=== PATIENT | male | born 1990 | race Caucasian/White ===

== ENCOUNTER 2020-05-24 20:50 | Emergency (ER) | payer SELFPAY ==
--- NOTE | 2020-05-24 20:59 | US_ITS ---
WS: [id number] SCROTAL ULTRASOUND EXAMINATION CLINICAL INFORMATION: testicle pain COMPARISON: None. FINDINGS: TESTES Normal in size and echotexture, without focal lesion. Color Doppler: Normal color Doppler flow pattern. Right testes size: 4.4 cm x 3.1 cm x 2.4 cm. Left testes size: 4.1 cm x 2.8 cm x 2.9 cm. EPIDIDYMIDES Normal in size and echotexture. Left epididymal cyst measuring 10.0 x 10.0 mm Color Doppler: Normal color Doppler flow pattern. Right epididymis size: 1.1 cm Left epididymitis size: 1.0 cm HYDROCELE None. VARICOCELE None. OTHER FINDINGS None. US/US scrotum [id number] IMPRESSION: 1. Left spermatocele measuring 10.0 x 10.0 mm 2. Testicles are normal bilaterally.
[2020-05-24 21:05] VITALS: BP 141/82; PULSE 76; RESP 16; TEMP 36; O2SAT 98; BMI 25.7
[2020-05-24 23:08] LABS: Anion Gap 12.7 (5-19); Blood Urea Nitrogen 8 mg/dL (6-20); Calcium 10.2 mg/dL (8.5-10.5); Carbon Dioxide 29 mmol/L (22-29); Chloride 101 mmol/L (98-107); Creatine Phosphokinase 105 U/L (39-308); Glomerular Filtration Rate 79.7 mL/min (90-130); Glucose 106 mg/dL (65-115); Osmolality Calculated 282 mOsm/kg (285-295); Potassium 4.7 mmol/L (3.5-5.1); Sodium 138 mmol/L (136-145)
--- NOTE | 2020-05-24 23:38 | W.ED.MALEGU ---
HPI - Male Genitourinary General: Chief complaint: Urogenital-Male Stated complaint: testicle pain Time Seen by Provider: 05/24/20 23:34 History of Present Illness: HPI Narrative: Patient has pain in left testicle. Been present couple days. Relates back he says possibly given tr trapped between a pallet and a wall. He is not sure if he had a pain or swelling before then at all. MD Complaint: testicle pain Onset (ago): day(s) Duration: constant Location: left testicle Severity: mild Severity scale (1-10): 2 Quality: aching Associated symptoms: Deny nausea or vomiting Review of Systems Const: Denies: fever(s), chills or body aches Eyes: Denies: change in vision or blurry vision ENMT: Denies: throat pain or nasal congestion Card: Denies: chest pain or dyspnea on exertion Resp: Denies: dyspnea, productive cough or non-productive cough GI: Denies: abdominal pain, nausea or vomiting : Reports: other (Has pain around the left testicle patient says he was trapped between a wall and a pallet the other day and thought maybe had got injured. Denies unprotected sex denies any dysuria or other related symptoms); Denies: difficulty urinating Musc: Denies: extremity pain Skin/Breast: Denies: rash Neuro: Denies: headache(s) Psych: Denies: anxiety or depression Nishant/Lymph: Denies: easy bruising Physical Exam Const: COMMON NORMALS: no acute distress, average body habitus and patient oriented x3 HENMT: COMMON NORMALS: normocephalic HEAD & SCALP: normal to inspection and normocephalic FACE & SINUS: normal facial exam Eye: COMMON NORMALS: conjunctivae normal GENERAL EYE: appearance normal, both eyes and all related structures CONJUNCTIVA: Yes conjunctivae normal Neck/C-Spine: COMMON NORMALS: no JVD Chest: COMMONS NORMALS: normal inspection of the chest Resp: COMMON NORMALS: normal respiratory effort Cardio: COMMON NORMALS: no JVD GI: COMMON NORMALS: Normal to inspection, nondistended, normoactive bowel sounds present : SCROTUM: Yes testes descended bilaterally and Yes Cremasteric reflex present TESTES: Yes testicular lie normal, No Enlarged testicle(s) present, No testicular swelling, No testicular tenderness and Yes epididymal mass Extremity: COMMON NORMALS: normal to inspection and full ROM Neuro: COMMON NORMALS: patient oriented x3 Course Vital Signs: Vital signs: Vital Signs Temperature 96.8 F L 05/24/20 21:05 Pulse Rate 76 05/24/20 21:05 Respiratory Rate 16 05/24/20 21:05 Blood Pressure 141/82 05/24/20 21:05 Pulse Oximetry 98 05/24/20 21:05 MDM - Male Lab Data: Labs: Lab Results 05/24/20 Range/Units 22:34 Sodium 138 (136-145) mmol/L Potassium 4.7 (3.5-5.1) mmol/L Chloride 101 (98-107) mmol/L Carbon Dioxide 29 (22-29) mmol/L Anion Gap 12.7 (5-19) BUN 8 (6-20) mg/dL Creatinine 1.1 (0.7-1.2) mg/dL GFR Calculation 79.7 L (90-130) mL/min Glucose 106 (65-115) mg/dL Calculated Osmolal ity 282 L (285-295) mOsm/k g Calcium 10.2 (8.5-10.5) mg/dL Creatine Kinase 105 (39-308) U/L Discharge Plan Discharge Patient Disposition: Home Clinical Impression: Spermatocele Condition: Stable Discharge Orders: Discharge Order (Routine); Ordered 05/24/20 Ordered By: Gentry Roa Discharge Diet: Usual diet Discharge Activity: Increase activity as tolerated Patient Instructions: Testicle Pain (ED) Activity Restrictions/Additional Instructions: Follow-up your family medical provider if no significant improvement or if the area gets larger or hurts more. Coding Level of Care Code ED Maintenance Supervisor Mechanical for Jo-Ann Champagne
[2020-05-25 00:07] VITALS: BP 138/80; PULSE 70; RESP 18; O2SAT 98
== END 2020-05-25 00:08 | disposition home or self-care (01) ==
PROVIDERS: Emergency Medicine; Emergency Provider Nurse Practitioner Family
DX: N43.40 Spermatocele of epididymis, unspecified (principal)
CPT/HCPCS: 12345; 76870; 80048; 82550; 99281; 99283